=== PATIENT | male | born 1950 | race Asian ===

== ENCOUNTER → 2016-11-19 | Outpatient (CLI) | payer MEDICARE ==
[~2016-11-19] MED LIST: AMLO5TAB2 PO; ASPI-496 PO; ATOR-2 PO; BUPR150T6 PO; CETI10CA PO; LOSA25TA5 PO; METO25TA35 PO; NITR0.4T28 SL; REGADENOSON 0.4 MG/5 ML SYRINGE ONE; TAMS-11 PO
== END | disposition home or self-care (01) ==
LOC: CFH 12:42
PROVIDERS: ATTEND Internal Medicine Cardiovascular Disease
DX: I35.0 Nonrheumatic aortic (valve) stenosis (principal); I25.119 Atherosclerotic heart disease of native coronary artery with unspecified angina pectoris; I10 Essential (primary) hypertension; I25.2 Old myocardial infarction; E78.5 Hyperlipidemia, unspecified; Z87.891 Personal history of nicotine dependence
CPT/HCPCS: 78452; 93017; 93306; A9502; J2785

== ENCOUNTER 2017-12-25 17:23 | Emergency (ER) | payer MEDICARE ==
[~2017-12-25] VITALS: Ht 162.6 cm; Wt 101.5 kg
[~2017-12-25 17:23] MED LIST changes: -AMLO5TAB2 PO; +AMLO5TAB7 PO; -LOSA25TA5 PO; +LOSA25TA6 PO; -REGADENOSON 0.4 MG/5 ML SYRINGE ONE
[2017-12-25 17:44] VITALS: BP 160/85
[2017-12-25] MEDS ORDERED: PROPARACAINE OPHTH 0.5%, 15ML ONE (18:03)
[2017-12-25] MEDS ORDERED: ATOR40TA PO (18:07)
[2017-12-25] MEDS ORDERED: ASCO10004 PO (18:08)
[2017-12-25] MEDS ORDERED: MULT-6 PO (18:12)
[2017-12-25] MEDS ORDERED: CALC1CAP8 PO (18:15)
== END 2017-12-25 19:14 | disposition home or self-care (01) ==
LOC: ED 19:10
DX: H18.822 Corneal disorder due to contact lens, left eye (principal); H10.32 Unspecified acute conjunctivitis, left eye; L03.213 Periorbital cellulitis; E78.00 Pure hypercholesterolemia, unspecified; I25.2 Old myocardial infarction; I11.9 Hypertensive heart disease without heart failure; Z87.891 Personal history of nicotine dependence
CPT/HCPCS: 99283